=== PATIENT | female | born 1975 | race Caucasian/White ===

== ENCOUNTER 2017-02-08 02:41 | Emergency (ER) | payer OTHER ==
[~2017-02-08] VITALS: Ht 157.5 cm; Wt 92.2 kg
[~2017-02-08 02:41] MED LIST: ADVIL200 MG PO; LUTERA1 EAC1 PO; NORCO 5/3251 TABLET PO
[2017-02-08 03:55] LABS: HEMATOCRIT 39.8 % (36.0-46.0); MCH 31.4 PG (29.0-34.0); MCHC 34.9 G/DL (30.0-36.0); MEAN PLAT.VOLUME 12.8 uM^3 (9.5-12.4); PLATELET COUNT 174 K/uL (156-360); RBC DIS.WIDTH-CV 11.5 % (11.8-14.6); RBC DIS.WIDTH-SD 37.9 % (39-53); RED BLOOD COUNT 4.42 M/uL (3.80-5.20); WHITE BLOOD COUNT 5.3 K/uL (4.1-10.2)
[2017-02-08 04:11] LABS: CHLORIDE 110 mEq/L (99-109); SODIUM 143 mEq/L (136-147)
[2017-02-08 04:14] LABS: GLUCOSE 119 mg/dL (70-99)
[2017-02-08 04:15] LABS: ANION GAP 10 MEQ/L (2-14); TOTAL BILIRUBIN 0.3 mg/dL (0.0-1.0)
[2017-02-08 04:16] LABS: SERUM ETHYL ALCOHOL 128 mg/dL
[2017-02-08 04:17] LABS: ALKALINE PHOSPHATASE 72 IU/L (3-129); GFR ESTIMATE (CALCULATED) > 59 mL/min/
[2017-02-08 04:18] LABS: UREA NITROGEN (BUN) 9 mg/dL (9-23)
[2017-02-08 04:29] LABS: QUANTITATIVE HCG < 4.0 MIU/ML
[2017-02-08 06:09] VITALS: BP 112/87
== END 2017-02-08 06:11 | disposition home or self-care (01) ==
LOC: EME → EDBD 02:41 → EME 02:41
PROVIDERS: Emergency Medicine
DX: F10.129 Alcohol abuse with intoxication, unspecified (principal); R11.2 Nausea with vomiting, unspecified; R15.9 Full incontinence of feces; R19.7 Diarrhea, unspecified; Y90.6 Blood alcohol level of 120-199 mg/100 ml
CPT/HCPCS: 70450; 80053; 81003; 84702; 85027; 93005; 99281; 99285; G0480; J2405; J7030